=== PATIENT | female | born 1970 | race African-American/Black ===

== ENCOUNTER 2022-04-01 23:31 | Emergency (ER) | payer MEDICAID ==
[~2022-04-01] VITALS: Ht 165.1 cm; Wt 68.0 kg
[2022-04-02 00:13] VITALS: BP_SYST 149
[2022-04-02] MEDS ORDERED: NAPR-690 PO (00:16)
--- NOTE | 2022-04-02 00:21 | NUR ---
Patient to ER bed 3 to gown for evaluation. Side rails up. Report given to MARILUZ
--- NOTE | 2022-04-02 00:35 | NUR ---
PT RECEIVED ER/MED EVAL AND TX BY DR. HAGAN. PT HAS BEEN A/OX4. PT HAS C/O SWELLING IN LEFT FINGER. IS AWARE. PT RECEIVED ORTHO TX OF LEFT FINGER BY MILL ORDER SCHEDULER AND RESOURCE RN POLINA. PT SENDY WELL. PT HAS SLING APPLIED. PT HAS DISPO FOR D/C TO HOME. PT VERB. UNDERSTANDING OF ACI. PT D/CD AND AMB WITH STABLE GAIT. SENDY PEGUERO
== END 2022-04-02 05:14 | disposition home or self-care (01) ==
LOC: SED 23:31
DX: S62.617A Displaced fracture of proximal phalanx of left little finger, initial encounter for closed fracture (principal); Z88.8 Allergy status to other drugs, medicaments and biological substances; Z79.899 Other long term (current) drug therapy; X50.9XXA Other and unspecified overexertion or strenuous movements or postures, initial encounter; Y93.89 Activity, other specified; Y92.89 Other specified places as the place of occurrence of the external cause; Y99.8 Other external cause status
CPT/HCPCS: 73140-TC; 99283; 99284